=== PATIENT | female | born 1950 | race Caucasian/White ===

== ENCOUNTER → 2023-02-27 | Outpatient (REF) | payer MEDICARE, OTHER ==
[2023-02-27 17:06] LABS: BASO % 0.3 % (0.0-1.0); EOS # 0.1 10^3/uL (0.0-0.5); EOS % 1.5 % (0.0-3.0); HEMATOCRIT 46.8 % (36.0-47.0); LYMPH # 3.9 10^3/uL (1.5-5.0); LYMPH % 44.8 % (24.0-44.0); MEAN CORPUSCULAR HEMOGLOBIN 30.9 pg (27.0-33.0); MEAN CORPUSCULAR HGB CONC 32.1 g/dl (32.0-36.5); MEAN CORPUSCULAR VOLUME 96.3 fl (80.0-96.0); MONO # 0.8 10^3/uL (0.0-0.8); NEUTROPHILS # 3.9 10^3/uL (1.5-8.5); NEUTROPHILS % 44.3 % (36.0-66.0); PLATELET COUNT, AUTOMATED 144 10^3/uL (150-450); RED BLOOD COUNT 4.86 10^6/uL (4.00-5.40); WHITE BLOOD COUNT 8.7 10^3/uL (4.0-10.0)
[2023-02-27 17:34] LABS: ALBUMIN 3.3 G/DL (3.2-5.2); ALKALINE PHOSPHATASE 142 U/L (46-116); ALT/SGPT 10 U/L (7.0-40); AST/SGOT 22 U/L (<34); BILIRUBIN,TOTAL 0.8 MG/DL (0.3-1.2); BLOOD UREA NITROGEN 19 MG/DL (9-23); CALCIUM LEVEL 8.9 MG/DL (8.3-10.6); CARBON DIOXIDE LEVEL 26 MMOL/L (20-31); CHLORIDE LEVEL 105 MMOL/L (98-107); CHOLESTEROL LEVEL 151 MG/DL (<200); CHOLESTEROL RISK RATIO 2.44 (<5); CREATININE FOR GFR 0.77 MG/DL (0.55-1.30); GLOMERULAR FILTRATION RATE > 60.0 (>39); GLUCOSE, FASTING 81 MG/DL (74-106); HDL CHOLESTEROL 61.7 MG/DL (>40); IRON (FE) 93 UG/DL (50-170); LDL CHOLESTEROL 70.3 MG/DL (<100); NON-HDL-C 89.3 MG/DL; POTASSIUM SERUM 4.5 MMOL/L (3.5-5.1); SODIUM LEVEL 141 MMOL/L (136-145); THYROID STIMULATING HORMONE 1.431 uIU/ML (0.55-4.78); TOTAL PROTEIN 7.1 G/DL (5.7-8.2); TRIGLYCERIDES LEVEL 95 MG/DL (<150)
[2023-02-27 18:40] LABS: HEMOGLOBIN A1c 5.1 % (4.0-6.0)
== END ==
LOC: M LAB REF 16:25
PROVIDERS: ATTEND Family Medicine Addiction Medicine
DX: D75.1 Secondary polycythemia (principal); E11.9 Type 2 diabetes mellitus without complications; E03.9 Hypothyroidism, unspecified

== ENCOUNTER 2023-04-11 10:50 | Outpatient (RCR) | payer MEDICARE | END 2023-04-13 | LOC: M PT 10:50 | PROVIDERS: ATTEND Family Medicine Addiction Medicine | DX: M62.81 Muscle weakness (generalized) (principal) ==

== ENCOUNTER → 2023-07-26 | Outpatient (REF) | payer MEDICARE, OTHER ==
[2023-07-26 12:24] LABS: HEMOGLOBIN A1c 4.7 % (4.0-6.0)
[2023-07-26 12:35] LABS: ALBUMIN 3.4 G/DL (3.2-5.2); ALKALINE PHOSPHATASE 125 U/L (46-116); ALT/SGPT 14 U/L (7.0-40); AST/SGOT 29 U/L (<34); BILIRUBIN,TOTAL 0.7 MG/DL (0.3-1.2); BLOOD UREA NITROGEN 9 MG/DL (9-23); CARBON DIOXIDE LEVEL 28 MMOL/L (20-31); CHLORIDE LEVEL 106 MMOL/L (98-107); CHOLESTEROL LEVEL 152 MG/DL (<200); CHOLESTEROL RISK RATIO 2.46 (<5); CREATININE FOR GFR 0.61 MG/DL (0.55-1.30); GLOMERULAR FILTRATION RATE > 60.0 (>39); GLUCOSE, FASTING 86 MG/DL (74-106); HDL CHOLESTEROL 61.6 MG/DL (>40); LDL CHOLESTEROL 72.8 MG/DL (<100); NON-HDL-C 90.4 MG/DL; POTASSIUM SERUM 4.7 MMOL/L (3.5-5.1); SODIUM LEVEL 142 MMOL/L (136-145); THYROID STIMULATING HORMONE 2.131 uIU/ML (0.55-4.78); TOTAL PROTEIN 7.3 G/DL (5.7-8.2); TRIGLYCERIDES LEVEL 88 MG/DL (<150)
== END ==
LOC: M LAB REF 11:22
PROVIDERS: ATTEND Family Medicine Addiction Medicine
DX: E11.69 Type 2 diabetes mellitus with other specified complication (principal)

== ENCOUNTER → 2023-09-04 | Outpatient (REF) | payer MEDICARE, OTHER ==
[2023-09-04 12:55] LABS: CREATININE, URINE 79.2 MG/DL; CREATININE,RANDOM URINE 79.2 MG/DL; MAU/CREAT RATIO 8.8 MCG/MG (0.0-30.0)
== END ==
LOC: M LAB REF 11:24
PROVIDERS: ATTEND Nurse Practitioner Family
DX: I10 Essential (primary) hypertension (principal); N39.0 Urinary tract infection, site not specified

== ENCOUNTER → 2023-12-11 | Outpatient (REF) | payer MEDICARE ==
[2023-12-11 13:40] LABS: APPEARANCE, URINE HAZY (CLEAR); BACTERIA, URINE AUTO 3+ (NEGATIVE); BILIRUBIN, URINE AUTO NEGATIVE (NEGATIVE); BLOOD, URINE BLOOD NEGATIVE (NEGATIVE); COLOR, URINE YELLOW (YELLOW); GLUCOSE, URINE (UA) AUTO NEGATIVE (NEGATIVE); KETONE, URINE AUTO NEGATIVE (NEGATIVE); LEUKOCYTE ESTERASE, URINE AUTO 1+ (NEGATIVE); MUCUS, URINE SMALL (NEGATIVE); NITRITE, URINE AUTO POSITIVE (NEGATIVE); PROTEIN, URINE AUTO NEGATIVE (NEGATIVE); RBC, URINE AUTO 2 /HPF (0-3); SQUAMOUS EPITHELIAL CELL UR AU 1 /HPF (0-6); UROBILINOGEN, URINE AUTO 0.2 mg/dL (0.0-2.0); WBC, URINE AUTO 6 /HPF (0-3)
== END ==
LOC: M SMT 12:59
PROVIDERS: ATTEND Urology
DX: N39.41 Urge incontinence (principal)

== ENCOUNTER → 2023-12-19 | Outpatient (REF) | payer MEDICARE ==
[2023-12-19 17:27] LABS: APPEARANCE, URINE CLEAR (CLEAR); BACTERIA, URINE AUTO NEGATIVE (NEGATIVE); BILIRUBIN, URINE AUTO NEGATIVE (NEGATIVE); BLOOD, URINE BLOOD NEGATIVE (NEGATIVE); COLOR, URINE AMBER (YELLOW); GLUCOSE, URINE (UA) AUTO NEGATIVE (NEGATIVE); KETONE, URINE AUTO NEGATIVE (NEGATIVE); LEUKOCYTE ESTERASE, URINE AUTO NEGATIVE (NEGATIVE); NITRITE, URINE AUTO NEGATIVE (NEGATIVE); PROTEIN, URINE AUTO NEGATIVE (NEGATIVE); RBC, URINE AUTO 2 /HPF (0-3); SPECIFIC GRAVITY URINE AUTO 1.015 (1.002-1.035); SQUAMOUS EPITHELIAL CELL UR AU 0 /HPF (0-6); WBC, URINE AUTO 1 /HPF (0-3)
== END ==
LOC: M SMT 16:54
PROVIDERS: ATTEND Urology
DX: Z87.440 Personal history of urinary (tract) infections (principal); Z79.899 Other long term (current) drug therapy

== ENCOUNTER 2024-02-04 18:05 | Inpatient (IN) | payer MEDICARE ==
[~2024-02-04] VITALS: Ht 167.6 cm; Wt 148.0 kg
[2024-02-04 11:45] VITALS: BP 144/83; TEMP 97.6; O2SAT 96
[2024-02-04] MEDS ORDERED: ASPI81CH33 PO (18:24)
[2024-02-04] MEDS ORDERED: AMMO12CR7 TOP (18:24)
[2024-02-04] MEDS ORDERED: COLA100C5 PO (18:24)
[2024-02-04] MEDS ORDERED: LEVO150T7 PO (18:24)
[2024-02-04] MEDS ORDERED: AMLO1TAB24 PO (18:24)
[2024-02-04] MEDS ORDERED: ROSU20TA61 PO (18:24)
[2024-02-04] MEDS ORDERED: OMEGCAP9 PO (18:24)
[2024-02-04] MEDS ORDERED: MYRB50TA PO (18:24)
[2024-02-04 18:58] LABS: BASO % 0.3 % (0.0-1.0); EOS # 0.2 10^3/uL (0.0-0.5); EOS % 1.9 % (0.0-3.0); HEMATOCRIT 41.2 % (36.0-47.0); LYMPH % 35.2 % (24.0-44.0); MEAN CORPUSCULAR HEMOGLOBIN 31.3 pg (27.0-33.0); MEAN CORPUSCULAR HGB CONC 31.6 g/dl (32.0-36.5); MEAN CORPUSCULAR VOLUME 99.3 fl (80.0-96.0); MONO # 0.9 10^3/uL (0.0-0.8); MONO % 10.4 % (2.0-8.0); NEUTROPHILS # 4.5 10^3/uL (1.5-8.5); NEUTROPHILS % 52.1 % (36.0-66.0); PLATELET COUNT, AUTOMATED 177 10^3/uL (150-450); RED BLOOD COUNT 4.15 10^6/uL (4.00-5.40); WHITE BLOOD COUNT 8.6 10^3/uL (4.0-10.0)
[2024-02-04 19:14] LABS: INR 1.17; PARTIAL THROMBOPLASTIN TIME 28.9 SECONDS (24.8-34.2); PROTHROMBIN TIME 14.6 SECONDS (12.5-14.5)
[2024-02-04 19:26] LABS: CPK CREATINE PHOSPHOKINASE 53 U/L (34-145)
[2024-02-04 19:27] LABS: ALBUMIN 3.4 G/DL (3.2-5.2); ALKALINE PHOSPHATASE 121 U/L (46-116); ALT/SGPT 11 U/L (7.0-40); AST/SGOT 18 U/L (<34); BILIRUBIN,DIRECT 0.3 MG/DL (<0.4); BILIRUBIN,TOTAL 0.7 MG/DL (0.3-1.2); BLOOD UREA NITROGEN 11 MG/DL (9-23); CALCIUM LEVEL 8.6 MG/DL (8.3-10.6); CARBON DIOXIDE LEVEL 26 MMOL/L (20-31); CHLORIDE LEVEL 106 MMOL/L (98-107); CK-MB VALUE MASS < 1.0 NG/ML (<3.6); CREATININE FOR GFR 0.64 MG/DL (0.55-1.30); GLOMERULAR FILTRATION RATE > 60.0 (>39); GLUCOSE, FASTING 113 MG/DL (74-106); MB/CK RELATIVE INDEX 1.88 (< OR =4); SODIUM LEVEL 142 MMOL/L (136-145)
[2024-02-04 19:29] LABS: FREE T4 1.58 NG/DL (0.89-1.76); THYROID STIMULATING HORMONE 2.015 uIU/ML (0.55-4.78)
[2024-02-04] MEDS: METOPROLOL 5 MG/5 ML VIAL IV SCH (19:35)
[2024-02-04] MEDS: APIXABAN 5 MG TAB (ELIQUIS) PO ONE (20:24)
[2024-02-04] MEDS: atenoloL 25 MG TAB PO ONE (20:26)
[2024-02-04] MEDS ORDERED: cefTRIAXone SOD 1 GM in D5W MINI-BAG PLUS 50 ML IV ONE (20:40)
[2024-02-04 21:25] LABS: PROCALCITONIN <0.04 ng/ml
[2024-02-04] MEDS ORDERED: ACETAMINOPHEN TAB 650MG DOSE (2X325MG) PO PRN (21:35)
[2024-02-04] MEDS ORDERED: MOM 30ML SUSPENSION UDC PO PRN (21:35)
[2024-02-04] MEDS ORDERED: CAPT100T2 PO (21:53)
[2024-02-04] MEDS ORDERED: [UNRECOGNIZED DRUG - CODE] PO (21:53)
[2024-02-04] MEDS ORDERED: FISH1CAP26 PO (21:53)
[2024-02-04] MEDS ORDERED: AMMO12LO TOP (21:53)
[2024-02-04] MEDS ORDERED: HOME MED LIST COMPLETE! XX SCH ×3 (21:55→23:55)
[2024-02-05] MEDS: ROSUVASTATIN 10 MG TAB (CRESTOR) PO ONE (02:09)
[2024-02-05] MEDS: CAPTOpril 12.5 MG TAB PO ONE (02:09)
[2024-02-05 03:58] VITALS: BP 122/58; TEMP 97.2; O2SAT 97
[2024-02-05 06:08] LABS: HEMATOCRIT 42.3 % (36.0-47.0); HEMOGLOBIN 12.9 g/dl (12.0-15.5); MEAN CORPUSCULAR HEMOGLOBIN 31.3 pg (27.0-33.0); MEAN CORPUSCULAR HGB CONC 30.5 g/dl (32.0-36.5); MEAN CORPUSCULAR VOLUME 102.7 fl (80.0-96.0); PLATELET COUNT, AUTOMATED 126 10^3/uL (150-450); RED BLOOD COUNT 4.12 10^6/uL (4.00-5.40); WHITE BLOOD COUNT 7.1 10^3/uL (4.0-10.0)
[2024-02-05] MEDS: LEVOTHYROXINE 150MCG TABLET (0.15MG) PO SCH (06:42)
[2024-02-05 06:50] LABS: BLOOD UREA NITROGEN 11 MG/DL (9-23); CALCIUM LEVEL 8.5 MG/DL (8.3-10.6); CARBON DIOXIDE LEVEL 24 MMOL/L (20-31); CHLORIDE LEVEL 107 MMOL/L (98-107); CREATININE FOR GFR 0.63 MG/DL (0.55-1.30); GLOMERULAR FILTRATION RATE > 60.0 (>39); GLUCOSE, FASTING 118 MG/DL (74-106); POTASSIUM SERUM 4.5 MMOL/L (3.5-5.1); SODIUM LEVEL 140 MMOL/L (136-145)
[2024-02-05 07:45] VITALS: BP 129/79; O2SAT 91
[2024-02-05] MEDS: FUROSEMIDE 40MG/4ML VIAL IV SCH (08:51)
[2024-02-05] MEDS: PANTOPRAZOLE 40MG VIAL IV SCH (08:51)
[2024-02-05] MEDS: DOCUSATE SODIUM 100MG CAPSULE PO SCH (08:51)
[2024-02-05] MEDS: OMEGA-3 1000MG CAPSULE PO SCH (08:51)
[2024-02-05] MEDS: APIXABAN 5 MG TAB (ELIQUIS) PO SCH (08:52)
[2024-02-05] MEDS: METOPROLOL SUCC *XL* 25MG TAB (TopROL *XL*) PO SCH (08:52)
[2024-02-05] MEDS: LACTIC ACID 12% LOTION 225 GM BTL TOP SCH (08:54)
[2024-02-05] MEDS ORDERED: hydroCHLOROthiazide 12.5 MG CAPSULE PO SCH (09:00)
[2024-02-05] MEDS ORDERED: ASPIRIN 81MG CHEW TABLET PO SCH (09:00)
[2024-02-05 12:09] VITALS: BP 140/74; TEMP 97; O2SAT 94
[2024-02-05 16:31] VITALS: BP 150/77; TEMP 96.9; O2SAT 93
[2024-02-05 19:00] VITALS: BP 153/64; TEMP 97.2; O2SAT 90
[2024-02-05] MEDS: ROSUVASTATIN 10 MG TAB (CRESTOR) PO SCH (22:06)
[2024-02-05] MEDS: CAPTOpril 12.5 MG TAB PO SCH (22:06)
[2024-02-06] VITALS: BP 135/68; TEMP 97.8; O2SAT 96
[2024-02-06 04:00] VITALS: BP 121/69; TEMP 97.2; O2SAT 96
[2024-02-06 07:45] VITALS: BP 132/76; TEMP 97.7; O2SAT 95
[2024-02-06 08:52] VITALS: BP 132/76
[2024-02-06] MEDS: FUROSEMIDE 40MG/4ML VIAL IV SCH (08:53)
[2024-02-06] MEDS ORDERED: MIRABEGRON 50 MG PO SCH (09:00)
[2024-02-06] MEDS ORDERED: TORS20TA2 PO (12:15)
[2024-02-06] MEDS ORDERED: ELIQ5TAB PO (12:15)
[2024-02-06] MEDS ORDERED: METO1TAB32 PO (12:15)
[2024-02-07] MEDS ORDERED: MIRABEGRON 50 MG PO SCH (09:00)
== END 2024-02-06 14:14 | disposition home or self-care (01) | DRG 291 ==
LOC: M ED 18:05 → M ED INP 21:31 → M PCU 23:34
PROVIDERS: ADMIT Internal Medicine; ATTEND Internal Medicine Nephrology
PROC: B246ZZZ Ultrasonography of Right and Left Heart (ICD-10-PCS; principal; 2024-02-05)
DX: I11.0 Hypertensive heart disease with heart failure (principal); I50.21 Acute systolic (congestive) heart failure; Z68.43 Body mass index [BMI] 50.0-59.9, adult; E03.9 Hypothyroidism, unspecified; I48.91 Unspecified atrial fibrillation; E78.5 Hyperlipidemia, unspecified; R30.0 Dysuria; R32 Unspecified urinary incontinence; F32.9 Major depressive disorder, single episode, unspecified; H91.90 Unspecified hearing loss, unspecified ear; E66.01 Morbid (severe) obesity due to excess calories; K21.9 Gastro-esophageal reflux disease without esophagitis; I73.9 Peripheral vascular disease, unspecified; M81.0 Age-related osteoporosis without current pathological fracture; M62.81 Muscle weakness (generalized); G89.29 Other chronic pain; M54.9 Dorsalgia, unspecified; I87.2 Venous insufficiency (chronic) (peripheral); R60.0 Localized edema; Z74.09 Other reduced mobility; Z98.41 Cataract extraction status, right eye; Z79.82 Long term (current) use of aspirin; Z79.890 Hormone replacement therapy; Z79.899 Other long term (current) drug therapy

== ENCOUNTER → 2024-02-25 | Outpatient (REF) | payer MEDICARE, OTHER ==
[~2024-02-25] MED LIST: AMLO1TAB24 PO; AMMO12CR7 TOP; AMMO12LO TOP; ASPI81CH33 PO; CAPT100T2 PO; COLA100C5 PO; ELIQ5TAB PO; FISH1CAP26 PO; LEVO150T7 PO; METO1TAB32 PO; MYRB50TA PO; OMEGCAP9 PO; ROSU20TA61 PO; TORS20TA2 PO; [UNRECOGNIZED DRUG - CODE] PO
[2024-02-25 13:11] LABS: BASO % 0.3 % (0.0-1.0); EOS # 0.2 10^3/uL (0.0-0.5); EOS % 2.5 % (0.0-3.0); HEMATOCRIT 50.6 % (36.0-47.0); HEMOGLOBIN 15.9 g/dl (12.0-15.5); LYMPH # 3.4 10^3/uL (1.5-5.0); LYMPH % 39.4 % (24.0-44.0); MEAN CORPUSCULAR HEMOGLOBIN 30.6 pg (27.0-33.0); MEAN CORPUSCULAR HGB CONC 31.4 g/dl (32.0-36.5); MEAN CORPUSCULAR VOLUME 97.3 fl (80.0-96.0); MONO # 1.4 10^3/uL (0.0-0.8); MONO % 15.7 % (2.0-8.0); NEUTROPHILS # 3.6 10^3/uL (1.5-8.5); NEUTROPHILS % 41.8 % (36.0-66.0); PLATELET COUNT, AUTOMATED 150 10^3/uL (150-450); WHITE BLOOD COUNT 8.7 10^3/uL (4.0-10.0)
[2024-02-25 13:33] LABS: CREATININE, URINE 106.4 MG/DL; MAU/CREAT RATIO 17.8 MCG/MG (0.0-30.0)
[2024-02-25 13:35] LABS: BLOOD UREA NITROGEN 26 MG/DL (9-23); CALCIUM LEVEL 9.2 MG/DL (8.3-10.6); CARBON DIOXIDE LEVEL 31 MMOL/L (20-31); CHLORIDE LEVEL 105 MMOL/L (98-107); CREATININE FOR GFR 0.89 MG/DL (0.55-1.30); GLOMERULAR FILTRATION RATE > 60.0 (>39); GLUCOSE, FASTING 100 MG/DL (74-106); POTASSIUM SERUM 4.2 MMOL/L (3.5-5.1); SODIUM LEVEL 144 MMOL/L (136-145)
== END ==
LOC: M LAB REF 11:25
PROVIDERS: ATTEND Nurse Practitioner Family
DX: I11.0 Hypertensive heart disease with heart failure (principal); R05.9 Cough, unspecified; I50.9 Heart failure, unspecified

== ENCOUNTER → 2024-05-21 | Outpatient (REF) | payer MEDICARE ==
[2024-05-21 18:10] LABS: APPEARANCE, URINE CLOUDY (CLEAR); BACTERIA, URINE AUTO 2+ (NEGATIVE); BILIRUBIN, URINE AUTO NEGATIVE (NEGATIVE); BLOOD, URINE BLOOD NEGATIVE (NEGATIVE); COLOR, URINE YELLOW (YELLOW); GLUCOSE, URINE (UA) AUTO NEGATIVE (NEGATIVE); KETONE, URINE AUTO TRACE mg/dL (NEGATIVE); LEUKOCYTE ESTERASE, URINE AUTO 3+ (NEGATIVE); MUCUS, URINE SMALL (NEGATIVE); NITRITE, URINE AUTO NEGATIVE (NEGATIVE); PROTEIN, URINE AUTO NEGATIVE (NEGATIVE); RBC, URINE AUTO 0 /HPF (0-3); SPECIFIC GRAVITY URINE AUTO 1.011 (1.002-1.035); SQUAMOUS EPITHELIAL CELL UR AU 2 /HPF (0-6); UROBILINOGEN, URINE AUTO 0.2 mg/dL (0.0-2.0); WBC, URINE AUTO 89 /HPF (0-3)
== END ==
LOC: M LABSMT 13:31
PROVIDERS: ATTEND Urology
DX: R30.0 Dysuria (principal)

== ENCOUNTER → 2024-07-31 | Outpatient (REF) | payer MEDICARE, OTHER ==
[~2024-07-31] MED LIST changes: -ROSU20TA61 PO; +ROSU20TA86 PO
[2024-07-31 13:45] LABS: BLOOD UREA NITROGEN 17 MG/DL (9-23); CARBON DIOXIDE LEVEL 34 MMOL/L (20-31); CHLORIDE LEVEL 105 MMOL/L (98-107); GLOMERULAR FILTRATION RATE > 60.0 (>39); GLUCOSE, FASTING 94 MG/DL (74-106); SODIUM LEVEL 143 MMOL/L (136-145)
== END ==
LOC: M LAB REF 12:37
PROVIDERS: ATTEND Nurse Practitioner Family
DX: I50.9 Heart failure, unspecified (principal)

== ENCOUNTER → 2024-08-07 | Outpatient (REF) | payer MEDICARE, OTHER ==
[2024-08-07 12:50] LABS: APPEARANCE, URINE CLOUDY (CLEAR); BACTERIA, URINE AUTO 3+ (NEGATIVE); BILIRUBIN, URINE AUTO NEGATIVE (NEGATIVE); BLOOD, URINE BLOOD NEGATIVE (NEGATIVE); COLOR, URINE YELLOW (YELLOW); GLUCOSE, URINE (UA) AUTO NEGATIVE (NEGATIVE); KETONE, URINE AUTO TRACE mg/dL (NEGATIVE); LEUKOCYTE ESTERASE, URINE AUTO 3+ (NEGATIVE); MUCUS, URINE SMALL (NEGATIVE); NITRITE, URINE AUTO NEGATIVE (NEGATIVE); PROTEIN, URINE AUTO 2+ mg/dL (NEGATIVE); RBC, URINE AUTO 4 /HPF (0-3); SPECIFIC GRAVITY URINE AUTO 1.018 (1.002-1.035); SQUAMOUS EPITHELIAL CELL UR AU 10 /HPF (0-6); WBC, URINE AUTO TNTC /HPF (0-3)
== END ==
LOC: M LAB REF 12:26
PROVIDERS: ATTEND Nurse Practitioner Family
DX: R30.0 Dysuria (principal)

== ENCOUNTER → 2024-08-26 | Outpatient (REF) | payer MEDICARE, OTHER ==
[2024-08-26 17:34] LABS: APPEARANCE, URINE TURBID (CLEAR); BACTERIA, URINE AUTO 3+ (NEGATIVE); BILIRUBIN, URINE AUTO NEGATIVE (NEGATIVE); BLOOD, URINE BLOOD 3+ (NEGATIVE); COLOR, URINE AMBER (YELLOW); GLUCOSE, URINE (UA) AUTO NEGATIVE (NEGATIVE); KETONE, URINE AUTO TRACE mg/dL (NEGATIVE); LEUKOCYTE ESTERASE, URINE AUTO 3+ (NEGATIVE); NITRITE, URINE AUTO NEGATIVE (NEGATIVE); PROTEIN, URINE AUTO 2+ mg/dL (NEGATIVE); RBC, URINE AUTO 68 /HPF (0-3); SPECIFIC GRAVITY URINE AUTO 1.012 (1.002-1.035); SQUAMOUS EPITHELIAL CELL UR AU 5 /HPF (0-6); UROBILINOGEN, URINE AUTO 0.2 mg/dL (0.0-2.0); WBC, URINE AUTO TNTC /HPF (0-3)
== END ==
LOC: M SMT 17:01
PROVIDERS: ATTEND Urology
DX: R82.90 Unspecified abnormal findings in urine (principal)

== ENCOUNTER → 2024-08-28 | Outpatient (REF) | payer MEDICARE, OTHER ==
[2024-08-28 14:12] LABS: ALBUMIN 3.4 G/DL (3.2-5.2); BILIRUBIN,DIRECT 0.4 MG/DL (<0.4); CHOLESTEROL RISK RATIO 2.85 (<5); HDL CHOLESTEROL 49.8 MG/DL (>40); NON-HDL-C 92.2 MG/DL; TOTAL PROTEIN 7.4 G/DL (5.7-8.2)
[2024-08-28 14:15] LABS: THYROID STIMULATING HORMONE 1.567 uIU/ML (0.55-4.78)
[2024-08-28 14:24] LABS: HEMOGLOBIN A1c 5.3 % (4.0-6.0)
== END ==
LOC: M LAB REF 09:40
PROVIDERS: ATTEND Nurse Practitioner Family
DX: E66.9 Obesity, unspecified (principal); E78.5 Hyperlipidemia, unspecified; E03.9 Hypothyroidism, unspecified

== ENCOUNTER 2024-09-19 10:01 | Outpatient (RCR) | payer MEDICARE | END 2024-10-14 | LOC: M PT 10:01 | PROVIDERS: ATTEND Nurse Practitioner Family | DX: R26.89 Other abnormalities of gait and mobility (principal) ==

== ENCOUNTER → 2024-11-03 | Outpatient (CLI) | payer MEDICARE | LOC: M SLEEP HO 11:23 | PROVIDERS: ATTEND Internal Medicine Cardiovascular Disease | DX: I27.81 Cor pulmonale (chronic) (principal); G47.33 Obstructive sleep apnea (adult) (pediatric) ==

== ENCOUNTER → 2024-11-21 | Outpatient (CLI) | payer MEDICARE ==
[2024-11-21 12:15] LABS: BASO % 0.4 % (0.0-1.0); EOS # 0.1 10^3/uL (0.0-0.5); EOS % 1.1 % (0.0-3.0); HEMATOCRIT 47.2 % (36.0-47.0); HEMOGLOBIN 15.5 g/dl (12.0-15.5); LYMPH % 42.2 % (24.0-44.0); MEAN CORPUSCULAR HEMOGLOBIN 32.2 pg (27.0-33.0); MEAN CORPUSCULAR HGB CONC 32.8 g/dl (32.0-36.5); MEAN CORPUSCULAR VOLUME 98.1 fl (80.0-96.0); MONO % 10.2 % (2.0-8.0); NEUTROPHILS # 4.4 10^3/uL (1.5-8.5); NEUTROPHILS % 45.8 % (36.0-66.0); PLATELET COUNT, AUTOMATED 147 10^3/uL (150-450); RED BLOOD COUNT 4.81 10^6/uL (4.00-5.40); WHITE BLOOD COUNT 9.6 10^3/uL (4.0-10.0)
[2024-11-21 12:37] LABS: ALBUMIN 3.2 G/DL (3.2-5.2); CALCIUM LEVEL 8.5 MG/DL (8.3-10.6); CREATININE FOR GFR 1.88 MG/DL (0.55-1.30); GLOMERULAR FILTRATION RATE 27.8 (>39); MAGNESIUM LEVEL 2.4 MG/DL (1.8-2.4); PHOSPHORUS LEVEL 3.1 MG/DL (2.4-5.1); POTASSIUM SERUM 3.1 MMOL/L (3.5-5.1)
== END ==
LOC: M LAB 09:29
PROVIDERS: ATTEND Internal Medicine Cardiovascular Disease
DX: I49.3 Ventricular premature depolarization (principal); I11.0 Hypertensive heart disease with heart failure; I50.32 Chronic diastolic (congestive) heart failure

== ENCOUNTER → 2024-12-08 | Outpatient (CLI) | payer MEDICARE ==
[2024-12-08 11:55] LABS: ALBUMIN 3.1 G/DL (3.2-5.2); CALCIUM LEVEL 8.5 MG/DL (8.3-10.6); CREATININE FOR GFR 0.98 MG/DL (0.55-1.30); GLOMERULAR FILTRATION RATE 58.9 (>39); PHOSPHORUS LEVEL 2.9 MG/DL (2.4-5.1); POTASSIUM SERUM 5.6 MMOL/L (3.5-5.1)
== END ==
LOC: M LAB 09:39
PROVIDERS: ATTEND Internal Medicine Cardiovascular Disease
DX: I11.0 Hypertensive heart disease with heart failure (principal); I50.32 Chronic diastolic (congestive) heart failure

== ENCOUNTER → 2024-12-19 | Outpatient (CLI) | payer MEDICARE ==
[2024-12-19 10:06] LABS: CALCIUM LEVEL 8.9 MG/DL (8.3-10.6); CREATININE FOR GFR 0.98 MG/DL (0.55-1.30); GLOMERULAR FILTRATION RATE 58.9 (>39); POTASSIUM SERUM 3.6 MMOL/L (3.5-5.1)
== END ==
LOC: M LAB 07:51
PROVIDERS: ATTEND Physician Assistant
DX: I50.32 Chronic diastolic (congestive) heart failure (principal)

== ENCOUNTER → 2025-01-06 | Outpatient (CLI) | payer MEDICARE | LOC: M EKG 09:24 | PROVIDERS: ATTEND Internal Medicine Cardiovascular Disease | DX: I48.91 Unspecified atrial fibrillation (principal); I49.3 Ventricular premature depolarization ==

== ENCOUNTER → 2025-02-12 | Outpatient (REF) | payer MEDICARE ==
[~2025-02-12] MED LIST changes: +LOSA50TA28 PO; +POTA1TAB23 PO; +SOLI10TA PO; +TOPR25TA PO
[2025-02-12 18:56] LABS: BASO % 0.4 % (0.0-1.0); EOS # 0.1 10^3/uL (0.0-0.5); EOS % 1.2 % (0.0-3.0); HEMATOCRIT 45.2 % (36.0-47.0); HEMOGLOBIN 14.5 g/dl (12.0-15.5); LYMPH # 3.8 10^3/uL (1.5-5.0); LYMPH % 40.5 % (24.0-44.0); MEAN CORPUSCULAR HEMOGLOBIN 32.2 pg (27.0-33.0); MEAN CORPUSCULAR HGB CONC 32.1 g/dl (32.0-36.5); MEAN CORPUSCULAR VOLUME 100.2 fl (80.0-96.0); MONO # 0.8 10^3/uL (0.0-0.8); MONO % 8.9 % (2.0-8.0); NEUTROPHILS # 4.6 10^3/uL (1.5-8.5); NEUTROPHILS % 48.8 % (36.0-66.0); PLATELET COUNT, AUTOMATED 133 10^3/uL (150-450); RED BLOOD COUNT 4.51 10^6/uL (4.00-5.40); WHITE BLOOD COUNT 9.4 10^3/uL (4.0-10.0)
[2025-02-12 19:00] LABS: CALCIUM LEVEL 8.4 MG/DL (8.3-10.6); CREATININE FOR GFR 1.11 MG/DL (0.55-1.30); GLOMERULAR FILTRATION RATE 51.8 (>39)
== END ==
LOC: M LAB REF 17:18
PROVIDERS: ATTEND Nurse Practitioner Family
DX: Z01.818 Encounter for other preprocedural examination (principal)

== ENCOUNTER 2025-02-19 08:54 | Day surgery (SDC) | payer MEDICARE ==
[~2025-02-19] VITALS: Ht 167.6 cm; Wt 126.1 kg
[~2025-02-19 08:54] MED LIST changes: +PHENYLEPHRINE 10% OPHTH SOL 5ML OD PRN
[2025-02-19] MEDS: CYCLOPENTOLATE 1% OPHTH SOLN 2ML BTL OD SCH (10:04)
[2025-02-19] MEDS: TROPICAMIDE 1% OPHTH SOLN 15ML OD SCH (10:05)
[2025-02-19] MEDS: OFLOXACIN 0.3 % (OCUFLOX) OPTH SOL 5ML OD ONE (10:05)
[2025-02-19] MEDS: PHENYLEPHRINE 2.5% OPHTH SOL 2ML OD SCH (10:05)
[2025-02-19] MEDS: LIDOCAINE 3.5 % 1ML OPHTH TOPICAL GEL OU ONE (10:06)
[2025-02-19] MEDS ORDERED: fentaNYL 100 MCG/2 ML INJECTION As Ordered ONE (10:19)
[2025-02-19] MEDS: LIDOCAINE 1% SDV 5ML VIAL As Ordered ONE (10:47)
[2025-02-19] MEDS: CEFUROXIME 1MG/0.1ML INTRACAMERAL INJ As Ordered ONE (10:47)
[2025-02-19] MEDS: BSS IRRIG/VANCO(10MG)/TOBRA(5MG)/EPINEPH(1:1000-0.5CC)500ML BAG-ORONLY As Ordered ONE (10:47)
[2025-02-19 10:57] VITALS: BP 130/87; TEMP 97.5; O2SAT 96
== END 2025-02-19 11:17 | disposition home or self-care (01) ==
LOC: M SDC 08:54
PROVIDERS: ATTEND Ophthalmology
DX: E11.36 Type 2 diabetes mellitus with diabetic cataract (principal); H25.11 Age-related nuclear cataract, right eye; I10 Essential (primary) hypertension; I48.91 Unspecified atrial fibrillation; E03.9 Hypothyroidism, unspecified; E78.00 Pure hypercholesterolemia, unspecified; N32.81 Overactive bladder; G47.30 Sleep apnea, unspecified; Z79.899 Other long term (current) drug therapy; Z79.01 Long term (current) use of anticoagulants; Z79.890 Hormone replacement therapy; Z98.42 Cataract extraction status, left eye; Z90.710 Acquired absence of both cervix and uterus
CPT/HCPCS: 66984; J0697; J3010; V2632

== ENCOUNTER → 2025-05-04 | Outpatient (REF) | payer MEDICARE, OTHER ==
[~2025-05-04] MED LIST changes: +AMMO12CR4 TOP; -AMMO12CR7 TOP; -PHENYLEPHRINE 10% OPHTH SOL 5ML OD PRN
[2025-05-04 13:30] LABS: CALCIUM LEVEL 8.9 MG/DL (8.3-10.6); CARBON DIOXIDE LEVEL 30.0 MMOL/L (20-31); CHLORIDE LEVEL 101.0 MMOL/L (98-107); CHOLESTEROL LEVEL 133.0 MG/DL (<200); CHOLESTEROL RISK RATIO 3.08 (<5); CREATININE FOR GFR 1.51 MG/DL (0.55-1.30); GLOMERULAR FILTRATION RATE 35.8 (>39); LDL CHOLESTEROL 62.5 MG/DL (<100); NON-HDL-C 89.9 MG/DL; POTASSIUM SERUM 4.1 MMOL/L (3.5-5.1); SODIUM LEVEL 144.0 MMOL/L (136-145); TRIGLYCERIDES LEVEL 137.0 MG/DL (<150)
== END ==
LOC: M LAB REF 12:12
PROVIDERS: ATTEND Nurse Practitioner Family
DX: E66.9 Obesity, unspecified (principal); E03.9 Hypothyroidism, unspecified

== ENCOUNTER → 2025-05-15 | Outpatient (REF) | payer MEDICARE, OTHER ==
[2025-05-15 17:29] LABS: CALCIUM LEVEL 8.9 MG/DL (8.3-10.6); CARBON DIOXIDE LEVEL 29.0 MMOL/L (20-31); CHLORIDE LEVEL 100.0 MMOL/L (98-107); CREATININE FOR GFR 1.34 MG/DL (0.55-1.30); GLOMERULAR FILTRATION RATE 41.4 (>39); POTASSIUM SERUM 4.2 MMOL/L (3.5-5.1); SODIUM LEVEL 143.0 MMOL/L (136-145)
== END ==
LOC: M LAB REF 16:21
PROVIDERS: ATTEND Nurse Practitioner Family
DX: R94.4 Abnormal results of kidney function studies (principal)

== ENCOUNTER → 2025-05-29 | Outpatient (CLI) | payer MEDICARE ==
[2025-05-29 10:18] LABS: BASO # 0.0 10^3/uL (0.0-0.2); BASO % 0.4 % (0.0-1.0); EOS # 0.1 10^3/uL (0.0-0.5); EOS % 1.6 % (0.0-3.0); LYMPH # 3.5 10^3/uL (1.5-5.0); LYMPH % 40.6 % (24.0-44.0); MONO # 0.9 10^3/uL (0.0-0.8); MONO % 10.2 % (2.0-8.0); NEUTROPHILS # 4.0 10^3/uL (1.5-8.5); NEUTROPHILS % 47.1 % (36.0-66.0); PLATELET COUNT, AUTOMATED 177 10^3/uL (150-450)
[2025-05-29 11:01] LABS: ALT/SGPT 11.0 U/L (7.0-40); AST/SGOT 23.0 U/L (<34); CALCIUM LEVEL 8.9 MG/DL (8.3-10.6); CARBON DIOXIDE LEVEL 30.0 MMOL/L (20-31); CHLORIDE LEVEL 104.0 MMOL/L (98-107); CREATININE FOR GFR 1.15 MG/DL (0.55-1.30); GLOMERULAR FILTRATION RATE 49.7 (>39); POTASSIUM SERUM 4.3 MMOL/L (3.5-5.1); SODIUM LEVEL 144.0 MMOL/L (136-145)
[2025-05-29 11:03] LABS: FREE T4 1.87 NG/DL (0.89-1.76)
== END ==
LOC: M LAB 09:08
PROVIDERS: ATTEND Physician Assistant
DX: I48.91 Unspecified atrial fibrillation (principal); I50.32 Chronic diastolic (congestive) heart failure; R94.4 Abnormal results of kidney function studies; R30.0 Dysuria

== ENCOUNTER → 2025-09-16 | Outpatient (REF) | payer MEDICARE ==
[2025-09-16 15:01] LABS: APPEARANCE, URINE CLOUDY (CLEAR); BACTERIA, URINE AUTO 3+ (NEGATIVE); BILIRUBIN, URINE AUTO NEGATIVE (NEGATIVE); BLOOD, URINE BLOOD 2+ (NEGATIVE); GLUCOSE, URINE (UA) AUTO NEGATIVE (NEGATIVE); KETONE, URINE AUTO NEGATIVE (NEGATIVE); LEUKOCYTE ESTERASE, URINE AUTO 2+ (NEGATIVE); MUCUS, URINE SMALL (NEGATIVE); NITRITE, URINE AUTO NEGATIVE (NEGATIVE); PROTEIN, URINE AUTO 2+ mg/dL (NEGATIVE); RBC, URINE AUTO 26 /HPF (0-3); SPECIFIC GRAVITY URINE AUTO 1.015 (1.002-1.035); SQUAMOUS EPITHELIAL CELL UR AU 11 /HPF (0-6); UROBILINOGEN, URINE AUTO 2.0 mg/dL (0.0-2.0); WBC, URINE AUTO TNTC /HPF (0-3)
== END ==
LOC: M SMT 12:54
PROVIDERS: ATTEND Urology
DX: Z87.440 Personal history of urinary (tract) infections (principal); Z79.899 Other long term (current) drug therapy